=== PATIENT | female | born 1990 | race African-American/Black ===

== ENCOUNTER 2016-06-30 14:36 | Emergency (ER) | payer OTHER ==
[~2016-06-30] VITALS: Ht 165.1 cm; Wt 70.3 kg
--- NOTE | 2016-06-30 16:37 | ED DYSPNEA/ASTHMA COMPLAINT ---
History of Present Illness General Chief Complaint: Dyspnea (COPD, CHF, Other) Stated Complaint: SOB Source: patient Exam Limitations: no limitations Vital Signs & Intake/Output Vital Signs & Intake/Output Vital Signs Date Time Temp Pulse Resp B/P Pulse O2 O2 Flow FiO2 Ox Delivery Rate 06/30 2020 98.4 69 18 116/75 99 Room Air 06/30 1839 100 Room Air 06/30 1834 97.2 66 20 118/73 100 Room Air 06/30 1636 76 16 98 Room Air 06/30 1516 97.7 69 16 114/73 99 Room Air Allergies Coded Allergies: peanut (ANAPHYLAXIS 06/30/16) Triage Note: PT STATES SHE WOKE THIS AM AND FELT LIKE SHE WAS BEING CHOKED AND SHE COULDN'T BREATH. PT STATES SHE DRANK SOME WATER AND THEN SHE PASSED OUT FRIEND HELD HER SO SHE DIDN'T HIT HER HEAD. THE CHOKING EPISODE LASTED ABOUT 20 MINUTES PER PT. Triage Nurses Notes Reviewed? yes Onset: Abrupt Duration: minute(s): (30) Timing: single episode today Severity: severe Activities at Onset: sleep : Yes Patient currently breastfeeds: No HPI: This is a 25-year-old female at 28 weeks gestation presented to the ER for chief complaint of waking up from sleep feeling like she couldn't breathe. She had a very dry throat. She states that she was trying to swallow and felt like she couldn't so she went to the kitchen to get a glass of water. She admits to feeling very anxious and hyperventilating. She stated that point she got weak and her friend held her. She did not hit the ground. No loss of consciousness. After the Ativan she was feeling much better they told her to calm down her breathing and since then she has felt fine. Patient arrived here by EMS. She denies any chest pain or shortness of breath prior to or after the event. Denies abdominal pain or tenderness. Denies any vaginal bleeding. She states that the only thing she feels right now is hungry and that she wants to go home. Patient is bright lactic to stay for full evaluation. I convinced her to stay at least for an EKG orthostatics. Patient's OB is at [facility]. (WILMER HUITRON,KARLO) Past History Travel History Traveled to [place] past 21 day No Medical History Any Pertinent Medical History? 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 No (KARLO GUILLEN MD) Review of Systems Review of Systems Constitutional: Denies: chills, fever. EENTM: Reports: see HPI, throat pain. Respiratory: Reports: short of breath. Denies: cough, sputum production. Cardiovascular: Denies: chest pain. GI: Denies: abdominal pain. Genitourinary: Reports: no symptoms. Musculoskeletal: Reports: no symptoms. Skin: Reports: no symptoms. Neurological/Psychological: Reports: anxiety. Hematologic/Endocrine: Denies: bruising, bleeding, polyuria, other. Immunologic/Allergic: Reports: no symptoms. All Other Systems: Reviewed and Negative (KARLO GUILLEN MD) Physical Exam Physical Exam General Appearance: well developed/nourished, alert, awake, anxious, mild distress Head: atraumatic, normal appearance Eyes: Bilateral: normal appearance, PERRL, EOMI. Ears, Nose, Throat: normal pharynx, hearing grossly normal Neck: normal inspection, supple, full range of motion Respiratory: normal breath sounds, chest non-tender, no respiratory distress Cardiovascular: regular rate/rhythm Peripheral Pulses: 2+ radial (R), 2+ radial (L) Gastrointestinal: normal bowel sounds, soft, non-tender Neurologic/Psych: awake, alert, oriented x 3 Skin: intact, normal color, warm/dry Core Measures ACS in differential dx? No Severe Sepsis Present: No Septic Shock Present: No (KARLO GUILLEN MD) Progress Differential Diagnosis: pe, dvt, VASOVAGAL EPISODE, HYPER VENTILATION Plan of Care: Orders Procedure Date/time Status Regular Diet 07/01 B Active URINALYSIS 06/30 1749 Complete D-DIMER 06/30 1730 Complete COMPREHENSIVE METABOLIC PANEL 06/30 1730 Complete CBC WITHOUT DIFFERENTIAL 06/30 1730 Complete MISTAKE 06/30 1705 Active EKG 06/30 1633 Active Laboratory Tests 06/30/16 1749: Urine Color YEL, Urine Clarity CLEAR, Urine pH 6.0, Ur Specific [place] <= 1.005 , Urine Protein NEG, Urine Ketones NEG, Urine Nitrite NEG, Urine Bilirubin NEG, Urine Urobilinogen 0.2, Ur Leukocyte Esterase SMALL H, Ur Microscopic SEDIMENT EXAMINED, Urine RBC 3-5, Urine WBC 15-25 H, Ur Epithelial Cells MOD H, Urine Hemoglobin NEG, Urine Glucose NEG 06/30/16 1744: Anion Gap 12, Estimated GFR > 60, BUN/Creatinine Ratio 8.6, Glucose 61 L, Calcium 9.5, Total Bilirubin 0.4, AST 26, ALT 30, Alkaline Phosphatase 277 H, Total Protein 7.0, Albumin 3.5, Globulin 3.5, Albumin/Globulin Ratio 1.0 L, D- Dimer 529 H, CBC w Diff NO MAN DIFF REQ, RBC 4.30, MCV 94.9, MCH 31.8 H, RDW 14.0, MPV 10.1, Gran % 54.6, Lymphocytes % 34.4, Monocytes % 10.4 H, Eosinophils % 0.3, Basophils % 0.3, Absolute Granulocytes 3.1, Absolute Lymphocytes 2.0, Absolute Monocytes 0.6, Absolute Eosinophils 0, Absolute Basophils 0, PUBS MCHC 33.5 Diagnostic Imaging: Viewed by Me: Ultrasound. Discussed w/RAD: Ultrasound. Initial ED EKG: NSR Hand-Off Endorsed To: CANDELARIO HUITRON,ZOYA [place] Endorsed Time: 1916 Pending: ultrasound (WILMER HUITRON,KARLO) Radiology Impression: PATIENT: CHUCKIE FRY PRESENT AGE: 25 PATIENT ACCOUNT NO: [id number] : 89 LOCATION: [facility] ORDERING PHYSICIAN: KARLO GUILLEN MD SERVICE DATE: 06/30/16 EXAM TYPE: US - US-EXT BILAT VENOUS DOPPLER EXAMINATION: US TRIPLEX LOWER EXTREMITY, BILATERAL CLINICAL INFORMATION: Evaluate for DVT. COMPARISON: None. TECHNIQUE: Color-flow triplex imaging with spectral analysis and compression Doppler were performed on the bilateral lower extremities. FINDINGS: Respiratory variation, normal compression and augmented flow are noted throughout the bilateral lower extremities. The visualized common femoral vein, superficial femoral vein, profunda femoral vein, popliteal vein and mid calf peroneal and posterior tibial venous segments show no evidence of deep venous thrombosis. There is no Vasquez's cyst. Prominent reactive node noted in the right femoral region with fatty hilum. IMPRESSION: There is no sonographic evidence of deep venous thrombosis involving the bilateral lower extremities. 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 < Electronically signed in Other Vendor System> SIGNED BY: GEE KUMAR MD 06/30/161947 Comments: D/W DR. MARQUIS (OB). SHE RECOMMENDS NOT DOING CXR OR CT SCAN. PT IS NOT HYPOXIC OR TACHYCARDIC. PT IS ASYMPTOMATIC. SHE IS AMBULATING IN THE ER WITHOUT DYSPNEA. SHE WOULD LIKE PT TO BE SENT TO [facility] FOR NONSTRESS TEST. (CANDELARIO HUITRON,ZOYA [place]) Departure Departure Disposition: HOME OR SELF CARE Condition: Stable Clinical Impression Primary Impression: Dyspnea Secondary Impressions: Hyperventilation Referrals: PATIENT HAS NO PRIMARY CARE DR (PCP/Family) Departure Forms: Customer Survey General Discharge Information (KARLO GUILLEN MD) Departure Additional Instructions: FOLLOW UP WITH YOUR OB DOCTOR TOMORROW RETURN FOR ANY CONCERNS. (CANDELARIO HUITRON,ZOYA [place]) Critical Care Note Critical Care Note Critical Care Time: non-applicable (KARLO GUILLEN MD) (KARLO GUILLEN MD)
[2016-06-30 18:17] LABS: ABSOLUTE BASOPHIL COUNT 0 /CUMM (0.0-0.2); ABSOLUTE EOSINOPHIL COUNT 0 /CUMM (0.0-0.7); ABSOLUTE GRANULOCYTE CT 3.1 /CUMM (1.4-6.5); ABSOLUTE MONOCYTE COUNT 0.6 /CUMM (0.10-0.60); BASOPHIL % 0.3 % (0.0-2.0); EOSINOPHIL % 0.3 % (0-5); GRANULOCYTE % 54.6 % (42.2-75.2); HEMATOCRIT 40.8 % (37-47); MEAN CORPUSCULAR HGB 31.8 PG (27.0-31.0); MEAN CORPUSCULAR HGB CONC 33.5 G/DL (33.0-37.0); MEAN CORPUSCULAR VOLUME 94.9 FL (81.0-99.0); MEAN PLATELET VOLUME 10.1 FL (7.4-10.4); PLATELET COUNT 168 /CUMM (130-400); WHITE BLOOD CELL COUNT 5.8 /CUMM (4.8-10.8)
--- NOTE | 2016-06-30 19:48 | ULTRASOUND REPORT ---
EXAMINATION: US TRIPLEX LOWER EXTREMITY, BILATERAL CLINICAL INFORMATION: Evaluate for DVT. COMPARISON: None. TECHNIQUE: Color-flow triplex imaging with spectral analysis and compression Doppler were performed on the bilateral lower extremities. FINDINGS: Respiratory variation, normal compression and augmented flow are noted throughout the bilateral lower extremities. The visualized common femoral vein, superficial femoral vein, profunda femoral vein, popliteal vein and mid calf peroneal and posterior tibial venous segments show no evidence of deep venous thrombosis. There is no Vasquez's cyst. Prominent reactive node noted in the right femoral region with fatty hilum. IMPRESSION: There is no sonographic evidence of deep venous thrombosis involving the bilateral lower extremities.
[2016-06-30 20:21] VITALS: BP 116/75
== END 2016-06-30 21:10 ==
LOC: ERH 14:36
PROVIDERS: Emergency Medicine
DX: R06.4 Hyperventilation (principal); O47.03 False labor before 37 completed weeks of gestation, third trimester; Z3A.32 32 weeks gestation of pregnancy
CPT/HCPCS: 59025; 81001; 93005; 93010; 93970; 96360